=== PATIENT | female | born 1930 | race Caucasian/White ===

== ENCOUNTER 2018-06-21 10:35 | Outpatient (CLI) | payer MEDICARE, BC | END 2018-06-21 23:59 | disposition home or self-care (01) | LOC: VAS 10:35 | PROVIDERS: ATTEND Family Medicine | DX: M79.661 Pain in right lower leg (principal) | CPT/HCPCS: 93971 ==

== ENCOUNTER 2019-03-21 10:23 | Emergency (ER) | payer MEDICARE, BC ==
[~2019-03-21] VITALS: Ht 160 cm; Wt 68.7 kg
[2019-03-21] MEDS ORDERED: celeCOXIB 100mg capsule PO SCH (11:15)
[2019-03-21] MEDS ORDERED: celeCOXIB 100mg capsule PO ONE (11:15)
[2019-03-21] MEDS ORDERED: PANT-47 PO (12:33)
[2019-03-21] MEDS ORDERED: CELE-193 PO (12:33)
[2019-03-21 12:44] VITALS: BP 142/72
== END 2019-03-21 12:45 | disposition home or self-care (01) ==
LOC: ER 10:24
DX: R07.89 Other chest pain (principal); M25.552 Pain in left hip; I48.91 Unspecified atrial fibrillation; E78.00 Pure hypercholesterolemia, unspecified; E03.9 Hypothyroidism, unspecified; Z88.8 Allergy status to other drugs, medicaments and biological substances; Z88.5 Allergy status to narcotic agent; Z79.899 Other long term (current) drug therapy; Z98.890 Other specified postprocedural states; Z95.9 Presence of cardiac and vascular implant and graft, unspecified; W18.39XA Other fall on same level, initial encounter; Y93.89 Activity, other specified; Y92.89 Other specified places as the place of occurrence of the external cause; Y99.8 Other external cause status
CPT/HCPCS: 71045; 73502; 99283

== ENCOUNTER 2019-05-15 23:48 | Emergency (ER) | payer MEDICARE, BC ==
[~2019-05-15] VITALS: Ht 160 cm; Wt 69.3 kg
[~2019-05-15 23:48] MED LIST: PANT-47 PO
[2019-05-15 23:55] VITALS: BP 158/68
[2019-05-16 00:28] LABS: CLARITY,URINE CLEAR (Clear); COLOR,URINE YELLOW (Yellow); GLUCOSE, URINE NEGATIVE (Neg); KETONES,URINE NEGATIVE (Neg); LEUKOCYTE ESTERASE ,URINE MODERATE (Neg); NITRITES, URINE NEGATIVE (Neg); OCCULT BLOOD,URINE LARGE (Neg); PH,URINE 6.5 (4.8-8.0); PROTEIN,URINE NEGATIVE (Neg); UROBILINOGEN,URINE 0.2 E.U/dL (0.2-1.0)
[2019-05-16 00:29] LABS: UA COLLECTION TYPE CLN CATCH MIDSTREAM
[2019-05-16 00:36] LABS: BACTERIA,URINE 1+ /HPF (Neg); MUCUS STRANDS NONE SEEN /LPF (Neg); RBC,URINE 0-2 /HPF (0-2); SQUAMOUS EPITHELIAL CELL,UR NONE SEEN /LPF (FEW)
[2019-05-16] MEDS ORDERED: PHEN-716 PO (00:55)
[2019-05-16] MEDS ORDERED: cephalexin 250mg capsule PO ONE (00:55)
[2019-05-16] MEDS ORDERED: phenazopyridine 100mg tablet PO ONE (00:55)
[2019-05-16] MEDS ORDERED: CEPH-572 PO (00:55)
== END 2019-05-16 01:09 | disposition home or self-care (01) ==
LOC: ER 23:49
DX: N39.0 Urinary tract infection, site not specified (principal); I48.91 Unspecified atrial fibrillation; E78.00 Pure hypercholesterolemia, unspecified; E03.9 Hypothyroidism, unspecified; Z98.890 Other specified postprocedural states; Z88.8 Allergy status to other drugs, medicaments and biological substances; Z88.5 Allergy status to narcotic agent; Z88.6 Allergy status to analgesic agent; Z79.2 Long term (current) use of antibiotics; Z79.899 Other long term (current) drug therapy
CPT/HCPCS: 81001; 87077; 87088; 87186; 99284